=== PATIENT | female | born 1965 | race Caucasian/White ===

== ENCOUNTER 2022-01-09 14:10 | Emergency (ER) | payer OTHER, SELFPAY ==
--- NOTE | 2022-01-09 14:19 | ED.SKABFB ---
HPI - Skin/Abscess/Foreign Bdy General Chief complaint: Skin/Abscess/Foreign Body Stated complaint: insect bite Time Seen by Provider: 01/09/22 14:10 Source: patient and RN notes reviewed History of Present Illness HPI narrative: Patient is a 56-year-old female who presents the urgent care with complaints of left forearm pain and swelling. Patient states she noticed it last after cleaning out her car and believes she may have gotten stung. Patient states that she has had cellulitis from an incident before. Patient denies any fever, nausea or vomiting. States that she has been using Benadryl cream and taking antihistamine without any relief. Patient also reports of some acute on chronic right shoulder pain. Patient states that she fell recently and did get placed on baclofen which helps at night however she has not getting any relief during the day. Patient states she is tried [id number] lidocaine patches, Biofreeze and ibuprofen. No other acute complaints. No acute distress noted. Patient aware of the plan of care. Some parts of this dictation were generated by voice recognition software and may contain typographical and/or grammatical inaccuracies. Related Data Home Medications Medication Instructions Recorded Confirmed baclofen 20 mg tablet mg 01/09/22 candesartan 16 mg tablet mg 01/09/22 chlorthalidone 25 mg tablet mg 01/09/22 diltiazem HCl 180 mg mg PO 01/09/22 capsule,extended release 24 hr lithium carbonate 450 mg mg PO 01/09/22 tablet,extended release Allergies Allergy/AdvReac Type Severity Reaction Status Date / Time No Known Allergies Allergy Verified 01/09/22 14:17 Review of Systems Review of Systems: CONSTITUTIONAL: Denies fever, chills, or sweats. EYES: Denies visual changes, redness, or discharge. ENT: Denies rhinorrhea, congestion, sore throat, or otalgia. CARDIOVASCULAR: Denies chest pain, palpitations, or edema. RESPIRATORY: Denies cough or dyspnea. GASTROINTESTINAL: Denies abdominal pain, nausea, vomiting, or diarrhea. GENITOURINARY: Denies dysuria or hematuria. SKIN: Reports of redness, swelling and pain to the left forearm due to possible insect bite MUSCULOSKELETAL: Reports of right shoulder pain NEUROLOGIC: Denies headache, numbness, or weakness. All other systems reviewed are negative, except as documented in HPI. PMFSH Comments At the time of my signature, I reviewed and agree with the nursing past medical, surgical, social, and family history. There is no relevant family history pertinent to the patient complaint. Exam Narrative: GENERAL: This is a well-nourished, well-developed patient, in no apparent distress. HEAD: normocephalic, atraumatic. EYES: PERRL. Sclera clear/white. Vision is grossly intact. EARS: External ears normal NOSE: External nose normal with no obvious nasal discharge, nares without redness, no rhinorrhea. THROAT: Mucous membranes moist NECK: Neck supple CARDIOVASCULAR: Regular rate and rhythm without murmurs, gallops, or rubs. RESPIRATORY: Clear to auscultation. Breath sounds equal bilaterally. No wheezes, rales, or rhonchi. GASTROINTESTINAL: Abdomen soft, non-tender, nondistended. Bowel sounds are active. No hepato-splenomegaly, or palpable masses. No guarding. SKIN: 10 x 6 cm area of erythema, mild edema, tenderness and warmth to the left forearm without any obvious wound or insect bite. NEURO: awake, alert, and oriented to person, place and time. There were no obvious focal neurologic abnormalities. EXTREMITIES: Range of motion of right upper extremity within normal limits with mild exacerbated pain on shoulder rotation. Anterior right shoulder tenderness. Positive strong right radial pulse with capillary refill less than 2 seconds. Course Course Level of Care: Express Care Visit Vital Signs Vital signs: Vital Signs Temperature 97.9 F 01/09/22 14:21 Pulse Rate 81 01/09/22 14:21 Respiratory Rate 16 01/09/22 14:21 Blood Pre
[2022-01-09 14:21] VITALS: BP 122/82; PULSE 81; RESP 16; TEMP 36.6; O2SAT 100
== END 2022-01-09 14:37 | disposition home or self-care (01) ==
PROVIDERS: Emergency Provider Nurse Practitioner Family
DX: L03.114 Cellulitis of left upper limb (principal); M25.511 Pain in right shoulder; I10 Essential (primary) hypertension
CPT/HCPCS: 99213; G0463